=== PATIENT | male | born 1990 | race Caucasian/White ===

== ENCOUNTER 2023-04-10 09:32 | Outpatient (REF) | payer MEDICAID, SELFPAY ==
[2023-04-10 09:51] LABS: MANUAL DIFF FLAG NO
[2023-04-10 10:12] LABS: Basophils Percent Auto 0.3 % (0-2); Eosinophils Absolute Auto 0.1 X10*3/uL (0.0-0.4); Hemoglobin 17.3 g/dl (14.0-18.0); Imm Gran Abs Auto 0.02 X10*3/uL (0.00-0.03); Imm Gran Pct Auto 0.3 % (0.0-0.4); Lymphocytes Absolute Auto 2.3 X10*3/uL (1.2-4.9); Lymphocytes Percent Auto 33.1 % (20-40); Mean Corpuscular Hemoglobin 32.1 pg (27.0-33.0); Mean Corpuscular Volume 89.1 fL (80.0-98.0); Mean Platelet Volume 8.8 fL (9.4-12.4); Monocytes Absolute Auto 0.9 X10*3/uL (0.1-1.2); Monocytes Percent Auto 12.5 % (2-11); Neutrophils Absolute Auto 3.6 x10*3/uL (2.0-8.3); Neutrophils Percent Auto 51.8 % (45-73); Platelet Count 244 X10*3/uL (160-400); Red Blood Count 5.39 X10*6/uL (4.60-5.80); Red Cell Distribution Width 11.8 % (11.0-16.0); White Blood Count 6.9 X10*3/uL (4.8-10.8)
[2023-04-10 10:49] LABS: Anion Gap 14 (12-20); Blood Urea Nitrogen 12 mg/dL (9-16); Calcium 9.4 mg/dL (8.4-10.2); Carbon Dioxide 26 mmol/L (22-29); Chloride 106 mmol/L (96-108); Cholesterol 217 mg/dL (<200); Estimated Glomerular Filt Rate > 60; Glucose Fasting 94 mg/dL (60-99); HDL Cholesterol 42 mg/dL (>40); LDL Cholesterol Calculated 159 mg/dL (<100); Potassium 4.5 mmol/L (3.3-5.1); Sodium 141 mmol/L (135-145); Triglycerides 82 mg/dL (<150)
[2023-04-10 11:00] LABS: TSH reflex Free T4 2.81 uIU/mL (0.32-4.0)
[2023-04-10 11:07] LABS: ~HepC Num1 0.07 S/CO (0.00-0.79); ~Hepatitis C Antibody Nonreactive (Nonreactive)
== END 2023-04-10 09:33 | disposition home or self-care (01) ==
LOC: HO.LAB 09:32
PROVIDERS: PCP Pediatrics; Visit Provider Pediatrics
DX: Z00.00 Encounter for general adult medical examination without abnormal findings (principal)
CPT/HCPCS: 36415; 80048; 80061; 84443; 85025; 86803

== ENCOUNTER 2025-01-15 15:14 | Outpatient (REF) | payer MEDICAID, SELFPAY ==
--- NOTE | ~2025-01-15 | XR_ITS ---
EXAMINATION: XR FOOT, LEFT CLINICAL INFORMATION: [Pain COMPARISON: None available. TECHNIQUE: AP, lateral, and oblique views of the left foot. FINDINGS: There is a small enthesophyte at the Achilles attachment on calcaneus. There are no other abnormalities. XR/XR foot LT min 3V IMPRESSION: Small Achilles calcaneal enthesophyte. Electronically signed by: Ko Lopez MD 01/15/2025 04:16 PM ROMAN
--- OUTSIDE RECORDS SUMMARY | 2025-01-15 14:40 | XMS_ITS | Encounter Summary ---
Author Organization [employer] Address [address] [facility] [address] [place] [address] Care Team Providers Care Court Monitor Name Role Phone Liya Kendall MD Primary Care Provider [phone] Fatou Bridges DDYovany Unavailable Unavailabl e Reason for Referral * Consultation (Urgent) - Pending Review Specialty Diagnoses / Procedures Referred By Fanta tsang Referred To Contact Podiatry Diagnoses Pain of left heel Genevieve Fields MD [address] [place] [phone] Phone: tel: fax: Referral ID Status Reason Start Date Expiration Date Visits Requested Visits Authorized [id number] Pending Review Specialty Services Required 01/15/2026 1 1 Encounter Details Date Type Department Care Team (Late st Contact Info) Description 01/15/2025 2:40 PM EST Office Visit [facility] [address] [place] [phone] Genevieve Fields MD [address] [place] [address] [phone] Pain of left heel Social History Tobacco Use Types Packs/Day Years Used Date Smoking Tobacco: Every Day Cigarettes Passive Smoke Exposure: Current Smokeless Tobacco: Never Alcohol Use Standard Drinks/Week Comments Not Currently 0 (1 standard drink = 0.6 oz pur e alcohol) Depression Answer Date Recorded Patient Health Questionnaire-9 Score 0 04/08/2023 Patient Health Questionnaire-9 Score 0 04/08/2023 Last PHQ-9: Questionnaire Data Not on file 0 04/08/2023 Housing Stability Answer Date Recorded What is your housing situation today? I have gale fu 03/30/[address] you li ve. Do you have problems with any of the following? None of the above 03/30/2023 Food Insecurity Answer Date Recorded Within the past 12 months, y ou worried that your food would run out before you got money to buy more: Never True 03/30/2023 Within the past 12 months,th e food you bought just didn't last and you didn't have enough money to get more: Never True Transportation Answer Date Recorded In the past 12 months, has l ack of transportation kept you from medical appts, meetings, work or from getting things needed for daily living? No 03/30/2023 Utilities Answer Date Recorded In the past 12 months, has t he electric, gas, oil or water company threatened to shut off services in your home? No 03/30/2023 Depression Answer Date Recorded Patient Health Questionnaire-2 Score 0 04/08/2023 Sex and Gender Information Value Date Recorded Sex Assigned at Male 04/08/2023 1:29 PM EST Legal Sex Male 2:07 PM EST Gender Identity Male 04/08/2023 1:29 PM EST Sexual Orientation Straight 04/08/2023 3: 30 PM EST documented as of this encounter Last Filed Vital Signs Vital Sign Reading Time Taken Comments Blood Pressure 135/88 01/15/2025 3:13 PM EST Pulse 82 01/15/2025 2:48 PM EST Temperature 35.7 C (96.3 F) 01/15/2025 2:48 PM EST Respiratory Rate 18 01/15/2025 2:48 PM EST Oxygen Saturation 96% 01/15/2025 2:48 PM EST Inhaled Oxygen Concentration - - Weight 103 kg (226 lb) 01/15/2025 2:48 PM EST Height 182.9 cm (6') 01/15/2025 2:48 PM EST Body Mass Index 30.65 01/15/2025 2:48 PM EST documented in this encounter Progress Notes * Genevieve Chacko MD - 01/15/2025 2:40 PM EST Images from the original note were not included. SUBJECTIVE: Forest Montero is a 34 y.o. year old male who presents for acute visit . Forest Montero, 34 years Left Heel Pain - Onset approximately 1.5 to 2 months ago - Pain described as severe, worsened by pressure on the bottom and back of the heel - Sensation of grinding or smashing against the bone - Pain present upon waking and placing feet on the ground, improves after stretching - Pain significant enough to require calling out of work - No daily use of pain medication; occasional Tylenol use - Attempts to walk on toes to avoid heel pain - Wears steel toe boots daily for work; suspects footwear may contribute - Reports callus formation on big toe, sometimes feels abnormal - Pain mainly localized to left heel, mild discomfort in right foot but less severe - Over 200 lbs; has tried various insoles including cloud soles and Dr. Montiel???s, including models for weight over 200 lbs, with minimal relief - Denies prior use of anti-inflammatories for this condition - Denies known history of high blood pressure - Drinks energy drinks (Red Bull) almost daily Misc - Laurens suggestions from others that condition may be plantar fasciitis - Inquired about cortisone injections and bone spurs as possible causes Social History Social History Narrative Not on file Problem List[1] Family History[2] Review of Systems Constitutional: Negative. HENT: Negative. Respiratory: Negative. Cardiovascular: Negative. Gastrointestinal: Negative. Musculoskeletal: Positive for arthralgias and myalgias. OBJECTIVE: Vitals: 01/15/25 1448 01/15/25 1513 BP: (!) 156/97 135/88 BP Location: Right arm Patient Position: Sitting BP Cuff Size: Large adult Pulse: 82 Resp: 18 Temp: 96.3 ??F (35.7 ??C) TempSrc: Temporal SpO2: 96% Weight: 226 lb (103 kg) Height: 6' (1.829 m) Physical Exam Constitutional: Appearance: Normal appearance. Cardiovascular: Rate and Rhythm: Normal rate and regular rhythm. Pulmonary: Effort: Pulmonary effort is normal. Breath sounds: Normal breath sounds. Abdominal: General: Abdomen is flat. Palpations: Abdomen is soft. Musculoskeletal: Left foot: Tenderness present. Feet: Feet: Comments: Tenderness Neurological: Mental Status: He is alert. Follow Up: No follow-ups on file. Medications Ordered Prior to Encounter[3] Problem List Items Addressed This Visit Pain of left heel Relevant Medications ibuprofen 800 MG tablet Other Relevant Orders XR Foot 3+ Views Left (Completed) Referral to Podiatry Pain of left heel: - Pain of left heel likely due to plantar fasciitis; differential includes bone spur. - Prescribed ibuprofen 800 mg every 8 hours with food. Provided printed exercises for heel pain. Referred to regular senior care provider for further evaluation and possible local injection if indicated. Offered referral to physical therapy. Ordered X-ray of left heel. Provided work note for 3 days off. This note was drafted using [employer]ase (Pin[employer]) technology. The patient/patient's guardian has been informed and has consented to the use of this technology: Yes [1] Patient Active Problem List Diagnosis Tobacco use Dental calculus Dental plaque Pain of left heel [2] Family History Problem Relation Name Age of Onset No Known Problems Mother No Known Problems Sister No Known Problems Brother [3] Current Outpatient Medications on File Prior to Visit Medication Sig Dispense Refill acetaminophen (Tylenol) 500 MG tablet Take 1 tablet (500 mg) by mouth every 6 (six) hours if neededfor mild pain for up to 20 doses. 20 tablet 0 azithromycin (Zithromax) 250 MG tablet Take (2) tabs 1st day; take (1) tab next 4 days. 6 tablet 0 nicotine (Nicoderm CQ) 21 MG/24HR patch Place 1 patch on the skin 1 (one) time each day at the sametime. 30 patch 1 Sodium Fluoride (PreviDent 5000 Plus) 1.1 % cream BRUSH TEETH FOR 2 MINUTES, MORNING AND NIGHT. SPIT, DO NOT RINSE. DO NOT EAT OR DRINK ANYTHING FOR 30 MINUTES FOLLOWING USE. 102 g 3 Sodium Fluoride 5000 Sensitive 1.1-5 % gel [place] teeth for 2 minutes, morning and night. Spit, do not rinse. Do not eat or drink anything for 30 minutes following brushing. 100 g 3 No current facility-administered medications on file prior to visit. documented in this encounter Plan of Treatment Upcoming Encounters Date Type Department Care Team (Late st Contact Info) Description 02/13/2025 2:15 PM EST Office Visit [facility] [address] [place] [address] Wisam Saucedo Scheduled Referrals Name Type Priority Associated Diagnoses Orde r Schedule Referral to Podiatry Outpatient Referral Urgent Pain of left heel Expected: 01/15/2025 (Approximate), Expires: 01/15/2026 documented as of this encounter Procedures Procedure Name Priority Date/Time Associated Diagnosis Comments XR FOOT 3+ VIEWS LEFT Routine 01/15/2025 4:02 PM EST Pain of left heel documented in this encounter Results * XR Foot 3+ Views Left (01/15/2025 4:02 PM EST) Anatomical Region Laterality Modality Lower Extremities, Foot Left Radiogra phic Imaging 01/15/2025 4:02 PM EST Narrative 01/15/2025 4:20 PM EST [facility] [address] [place] [address] XRay Report Signed Patient: Forest Montero MR#: [id number] 10 : 1990 Acct:[id number] Age/Sex: 34 / M ADM Date: 01/15/25 Loc: HO.HHCX Attending Dr: Genevieve Chacko MD Ordering Physician: Genevieve Fields MD Date of Service: 01/15/25 Procedure(s): XR foot LT min 3V Accession Number(s): [id number] cc: Genevieve Fields MD; Liya Kendall MD Reason for Exam: pain EXAMINATION: XR FOOT, LEFT CLINICAL INFORMATION: [Pain COMPARISON: None available. TECHNIQUE: AP, lateral, and oblique views of the left foot. FINDINGS: There is a small enthesophyte at the Achilles attachment on calcaneus. There are no other abnormalities. XR/XR foot LT min 3V IMPRESSION: Small Achilles calcaneal enthesophyte. Electronically signed by: Ko Lopez MD 01/15/2025 04:16 PM EST Dictated By: Ko Lopez MD Signed By: <Electronically signed by Ko Lopez MD in OV> 01/15/25 1616 DD/ 1602 TD/TT: 01/15/25 1609 Deck Engineer: Procedure Note Donotuseinterpreter, Image - 01/15/[address] [address] XRay Report Signed Patient: Forest Montero JMR#: [id number] 10 : 1990Acct:[id number] Age/Sex: 34 / MADM Date: 01/15/25 Loc: HO.HHCX Attending Dr: Genevieve Chacko MD Ordering Physician: Genevieve Fields MD Date of Service: 01/15/25 Procedure(s): XR foot LT min 3V Accession Number(s): [id number] cc: Genevieve Fields MD; Liya Kendall MD Reason for Exam: pain EXAMINATION: XR FOOT, LEFT CLINICAL INFORMATION: [Pain COMPARISON: None available. TECHNIQUE: AP, lateral, and oblique views of the left foot. FINDINGS: There is a small enthesophyte at the Achilles attachment on calcaneus. There are no other abnormalities. XR/XR foot LT min 3V IMPRESSION: Small Achilles calcaneal enthesophyte. Electronically signed by: Ko Lopez MD 01/15/2025 04:16 PM EST Dictated By: Ko Lopez MD Signed By: <Electronically signed by Ko Lopez MD in OV> 01/15/25 1616 DD/ 1602 TD/TT: 01/15/25 1609 Deck Engineer: us Genevieve Chacko MD IMG XR PROCEDURES Thierry mary jane Result - Final documented in this encounter Visit Diagnoses Diagnosis Pain of left heel documented in this encounter Additional Health Concerns Assessment Noted Time PHQ-9 Depression Total Score: 0 04/08/19 24 1:50 PM EST documented as of this encounter Care Teams Court Monitor Relationship Specialty Start Date End Date Liya Kendall MD [address] [place] [id number] PCP - General Internal Medicine 04/08/23 Fatou Bridges DDS [address] [place] [address] Resident Dental Night Manager 04/28/24 documented as of this encounter
--- OUTSIDE RECORDS SUMMARY | 2025-01-15 17:21 | XMS_ITS | Encounter Summary ---
Author Organization [employer] Address [address] [facility] 7[address] [place] [address] Care Team Providers Care Crop Specialist Name Role Phone Liya Kendall MD Primary Care Provider [phone] Fatou Bridges DDYovany Unavailable Unavailabl e Encounter Details Date Type Department Care Team (Latest Contact Info) Description 01/15/2025 Travel Social History Tobacco Use Types Packs/Day Years [...] PM EST documented as of this encounter Plan of Treatment Upcoming Encounters Date Type Department Care Team (Late st Contact Info) Description 02/13/2025 2:15 PM EST Office Visit [facility] [address] [place] [address] Wisam Saucedo documented as of this encounter Visit Diagnoses Not on filedocumented in this encounter Additional Health Concerns Assessment Noted Time PHQ-9 Depression Total Score: 0 04/08/19 24 1:50 PM EST documented as of this encounter Care Teams Crop Specialist Relationship Specialty Start Date End Date Liya Kendall MD [address] [place] [address] PCP - General Internal Medicine 04/08/23 Fatou Bridges DDS [address] [place] [address] Resident Dental Nutrition Aides Teacher 04/28/24 documented as of this encounter
--- OUTSIDE RECORDS SUMMARY | 2025-01-15 17:21 | XMS_ITS | Clinical Summary ---
Author Organization [facility] Address [address] [address] Phone Care Team Providers Care Tube Room Cashier Name Role Phone Unknown, Unknown MD Primary Care Provider Abundio qiu Allergies Active Allergy Reactions Criticality Noted Date Comments Amoxicillin-Pot Clavulanate Rash Low 12/31/19 23 Medications benzonatate (TESSALON) 100 MG capsule Take 2 capsules (200 mg total) by mouth 3 (three) times a day as needed for cough. 21 capsule 3 Active Additional Information Patient not taking.Reported on 12/30/2022 albuterol (PROAIR HFA) 90 mcg/actuation inhaler Inhale 2 puffs into the lungs every 4 (four) hours as needed for wheezing. 18 g 3 Active inhaler spacing device (AEROCHAMBER,BR EATHERITE) Spcr Inhale 1 each into the lungs every 4 (four) hours as needed. 1 each 3 Active Active Problems No known active problems Social History Tobacco Use Types Packs/Day Years Used Date Smoking Tobacco: Every Day Smokeless Tobacco: Never Alcohol Use Standard Drinks/Week Comments No 0 (1 standard drink = 0.6 oz pur e alcohol) Education Answer Date Recorded Are you interested in more education? Not on marysol e 07/03/2022 Are you concerned about learning? Not on file 07/03/2022 No 07/03/2022 No 07/03/2022 Digital Access Answer Date Recorded No 07/31/2022 No 07/31/2022 Reliable internet access at home? Not on file 07/31/2022 Device with a working camera? Not on file Sex and Gender Information Value Date Recorded Sex Assigned at Male 09/01/2017 6:24 PM EDT Legal Sex Male 8:56 PM EDT Gender Identity Male 09/01/2017 6:24 PM EDT Sexual Orientation Straight 09/01/2017 6: 24 PM EDT Last Filed Vital Signs Vital Sign Reading Time Taken Comments Blood Pressure 128/84 12/30/2022 9:28 AM EDT Pulse 104 12/30/2022 9:28 AM EDT Temperature 37.5 C (99.5 F) 12/30/2022 9:28 AM EDT Respiratory Rate 18 12/23/2022 9:12 AM EDT Oxygen Saturation 97% 12/30/2022 9:28 AM EDT Inhaled Oxygen Concentration - - Weight 104.3 kg (230 lb) 12/30/2022 9:28 AM EDT pt reports Height 182.9 cm (6') 12/23/2022 9:12 AM EDT Body Mass Index 31.19 12/23/2022 9:12 AM EDT Plan of Treatment Health Maintenance Due Date Last Done Comments Adult Td,Tdap Booster 1992 DEPRESSION SCREENING 2004 SMOKING Hx and SMOKELESS TOB ACCO SCREENING 2005 HEPATITIS C SCREENING 2010 HIV ONE-TIME SCREENING (18-6 5 YEARS) 2010 PNEUMOCOCCAL VACCINES (0-49 years) (1 of 2 - PCV) 12/21/2011 INFLUENZA VACCINE (#1) 2024 COVID-19 VACCINE (2 - 2024-2 6 season) 2024 07/10/2020 HEPATITIS A VACCINES Aged Out No long er eligible based on patient's age to complete this topic HIB VACCINES Aged Out No longer eligi ble based on patient's age to complete this topic IPV VACCINES Aged Out No longer eligi ble based on patient's age to complete this topic MENINGOCOCCAL VACCINES (ACWY) Aged Out No longer eligible based on patient's age to complete this topic MENINGOCOCCAL VACCINES (B) Aged Out N o longer eligible based on patient's age to complete this topic Medical Devices Not on file Insurance Member Subscriber Plan / Payer (Ef fective 2018-Present) Name:Forest Montero Member ID:[id number] Relation to Subscriber:Self Name:Forest Montero Subscriber ID:[id number] Payer ID:Not on file Group ID:Not on file Type:Indemnity Address: [address] [employer] Member Subscriber Plan / Payer (Ef fective 2018-Present) Name:Forest Montero Member ID:[id number] Relation to Subscriber:Self Name:Forest Montero Subscriber ID:[id number] Payer ID:Not on file Group ID:Not on file Type:Indemnity Address: [address] [employer] Member Subscriber Plan / Payer (Ef fective 2018-Present) Name:Forest Montero Member ID:[id number] Relation to Subscriber:Self Name:Forest Montero Subscriber ID:[id number] Payer ID:Not on file Group ID:Not on file Type:Indemnity Address: [address] [employer] [facility] Member Subscriber Plan / Payer (Ef fective 2018-Present) Name:Forest Montero Member ID:[id number] Relation to Subscriber:Self Name:Forest Montero Subscriber ID:[id number] Payer ID:Not on file Group ID:Not on file Type:Indemnity Address: [address] [employer] [facility] Member Subscriber Plan / Payer (Ef fective 2018-Present) Name:Forest Montero Member ID:[id number] Relation to Subscriber:Self Name:Forest Montero Subscriber ID:[id number] Payer ID:Not on file Group ID:Not on file Type:Indemnity Address: [address] [employer] [facility] Member Subscriber Plan / Payer (Ef fective 2018-Present) Name:Forest Montero Member ID:[id number] Relation to Subscriber:Self Name:Forest Montero Subscriber ID:[id number] Payer ID:Not on file Group ID:Not on file Type:Indemnity Address: [address] [employer] [facility] Member Subscriber Plan / Payer (Ef fective 2018-Present) Name:Sevene, Forest Member ID:[id number] Relation to Subscriber:Self Name:Forest Montero Subscriber ID:[id number] Payer ID:Not on file Group ID:Not on file Type:Indemnity Address: [address] [place] [address] [place] [address] Member Subscriber Plan / Payer ( fective 2018-Present) Name:Winston[place]st Member ID:[id number] Relation to Subscriber:Self Name:Forest Montero Subscriber ID:[id number] Payer ID:Not on file Group ID:Not on file Type:Indemnity Address: [address] [place] [address] [place] [address] [facility] [employer] Care Teams Tube Room Cashier Relationship Specialty Start Date End Date Unknown, Unknown, PCP - General 09/01/17 Additional Source Comments The information contained in this document represents components of the legal health record. It is not the complete legal health record.[facility]
--- OUTSIDE RECORDS SUMMARY | 2025-01-15 17:21 | XMS_ITS | Clinical Summary ---
Author Organization [employer] Address [address] [place] [address] Care Team Providers Care Electric Mule Operator Name Role Phone Liya Kendall MD Primary Care Provider [phone] Fatou Bridges DDS Unavailable Unavailabl e Allergies Active Allergy Reactions Criticality Noted Date Comments Amoxicillin-Pot Clavulanate Rash Low 12/31/19 23 Medications nicotine (Nicoderm CQ) 21 MG/24HR patch Place 1 patch on the skin 1 (one) time each day at the same time. 30 patch 1 4 Active Sodium Fluoride 5000 Sensitive 1.1-5 % gel [place] teeth for 2 minutes, morning and night. Spit, do not rinse. Do not eat or drink anything for 30 minutes following brushing. 100 g 3 4 Active Sodium Fluoride (PreviDent 5000 Plus) 1.1 % cream BRUSH TEETH FOR 2 MINUTES, MORNING AND NIGHT. SPIT, DO NOT RINSE. DO NOT EAT OR DRINK ANYTHING FOR 30 MINUTES FOLLOWING USE. 102 g 3 4 Active acetaminophen (Tylenol) 500 MG tablet Take 1 tablet (500 mg) by mouth every 6 (six) hours if needed for mild pain for up to 20 doses. 20 tablet 5 Active azithromycin (Zithromax) 250 MG tablet Take (2) tabs 1st day; take (1) tab next 4 days. 6 tablet 5 Active ibuprofen 800 MG tabletIndicatio ns:Pain of left heel Take 1 tablet (800 mg) by mouth every 8 (eight) hours if needed for moderate pain for up to 10 days. 30 tablet 5 01/26/20 25 Active Active Problems Problem Noted Date Diagnosed Date Pain of left heel 01/15/2025 Dental calculus 11/12/2023 Dental plaque 11/12/2023 Tobacco use 04/08/2023 Encounters Date Type Department Care Team Description 01/15/2025 2:40 PM EST Office Visit [facility] [address] [facility] [place] [address] Genevieve Fields MD Pain of left heel 01/15/2025 Travel 01/15/2025 Telephone [facility] [address] [place] [address] Liya Kendall MD Nurse Triage from Last 3 Months Immunizations Immunization Administration Dates Next Due Hep A, Adult 09/23/2022,02/27/2022 Hep B, adult 09/23/2022,03/30/2022,02/27/2022 Family History Medical History Relation Name Comments No Known Problems Brother No Known Problems Mother No Known Problems Sister Relation Name Status Comments Brother Alive Father Alive Mother Alive Sister Alive Social History Tobacco Use Types Packs/Day Years Used Date Smoking Tobacco: Every Day Cigarettes Passive Smoke Exposure: Current Smokeless Tobacco: Never Tobacco Cessation:Ready to Q uit: Not Asked; Counseling Given: Not Answered Alcohol Use Standard Drinks/Week Comments Not Currently [...] Orientation Straight 04/08/2023 3: 30 PM EST Last Filed Vital Signs Vital Sign Reading [...] Mass Index 30.65 01/15/2025 2:48 PM EST Plan of Treatment Upcoming Encounters Date Type Department Care Team (Late st Contact Info) Description 02/13/2025 2:15 PM EST Office Visit [facility] [address] [place] [address] Wisam Saucedo Health Maintenance Due Date Last Done Comments HIV Screening 1992 Disability Screening 1992 Alcohol/Substance Use Screening 2004 Family Planning (PISQ) 12/21/2007 HPV Vaccines (1 - Male 3-dos e series) 12/21/2007 DTaP/Tdap/Td Vaccines (1 - Tdap) 12/21/2011 Pneumococcal Vaccine: Pediatrics (0 to 5 Years) and At-Risk Patients (6 to 49) Years (1 of 2 - PCV) 12/21/2011 SDOH Screening 03/30/2024 03/30/2023 Depression Screening 04/08/2024 04/08/2023, 04/08/2023 Dental Oral Exam 05/05/2024 11/02/2023 Dental X-Ray: Bitewings 11/02/2024 11/02/2023 COVID-19 Vaccine (3 - 2024-2 6 season) 2024 07/31/2020, 07/10/2020 Influenza Vaccine (#1) 2024 Dental Prophylaxis 11/16/2024 05/15/2024, 11/12/2023 Tobacco Screening 07/13/2025 07/13/2024 Dental X-Ray: Full Mouth 11/02/2026 11/02/2023 Lipid Panel 04/10/2028 04/10/2023 Zoster Vaccines (1 of 2) 2042 RSV Patients and Patients Aged 60 years or older (1 - 1-dose 75+ series) 12/21/2067 Hepatitis A Vaccines Aged Out 09/23/2022, 02/27/2022 No longer eligible based on patient's age to complete this topic Hepatitis B Vaccines Completed 09/23/2022, 03/30/2022, 02/27/2022 Hepatitis C Screening Completed 04/10/2023 HIB Vaccines Aged Out No longer eligi ble based on patient's age to complete this topic IPV Vaccines Aged Out No longer eligi ble based on patient's age to complete this topic Meningococcal B Vaccine Aged Out No l onger eligible based on patient's age to complete this topic Meningococcal Vaccine Aged Out No jose miguel jenny eligible based on patient's age to complete this topic RSV under 20 months Aged Out No longe r eligible based on patient's age to complete this topic Rotavirus Vaccines Aged Out No longer eligible based on patient's age to complete this topic Procedures Procedure Name Priority Date/Time Associated Diagnosis Comments XR FOOT 3+ VIEWS LEFT Routine 01/15/2025 4:02 PM EST Pain of left heel PROPHYLAXIS - ADULT Routine 05/15/2024 8 :00 AM EDT INTRAORAL - COMPLETE SERIES OF RADIOGRAPHIC IMAGES Routine 11/02/2023 8:30 AM EDT COMPREHENSIVE ORAL EVALUATION - NEW OR ESTABLISHED PATIENT Routine 11/02/2023 8:30 AM EDT HEPATITIS C ANTIBODY Routine 04/10/2023 9:49 AM EST Encounter for routine dental examination Routine general medical examination at a health care facility LIPID PANEL, STANDARD Routine 04/10/2023 9:49 AM EST Encounter for routine dental examination Routine general medical examination at a health care facility from Last 3 Months or Most Recently Relevant to Health Maintenance Results * XR Foot 3+ Views Left (01/15/2025 4:02 PM EST) Anatomical Region Laterality Modality Lower Extremities, Foot Left Radiogra phic Imaging 01/15/2025 4:02 PM EST Narrative 01/15/2025 4:20 PM EST [address] [address] XRay Report Signed Patient: Forest Montero MR#: [id number] 10 : 1990 Acct:[id number] Age/Sex: 34 / M ADM Date: 01/15/25 Loc: HO.HHCX Attending Dr: Genevieve Chacko MD Ordering Physician: Genevieve Fields MD Date of Service: 01/15/25 Procedure(s): XR foot LT min 3V Accession Number(s): [id number] cc: Genevieve Fields MD; Liya Kendall MD [...] 01/15/25 1616 DD/ 1602 TD/TT: 01/15/25 1609 Process Safety Manager: Procedure Note Donotuseinterpreter, Image - 01/15/[address] [address] XRay Report Signed Patient: Forest Montero JMR#: [id number] 10 : 1990Acct:[id number] Age/Sex: 34 / MADM Date: 01/15/25 Loc: HO.HHCX Attending Dr: Genevieve Chacko MD Ordering Physician: Genevieve Fields MD Date of Service: 01/15/25 Procedure(s): XR foot LT min 3V Accession Number(s): [id number] cc: Genevieve Fields MD; Liya Kendall MD [...] 01/15/25 1616 DD/ 1602 TD/TT: 01/15/25 1609 Process Safety Manager: Genevieve Chacko MD IMG XR PROCEDURES Thierry mary jane Result - Final * Hepatitis C Ab (04/10/2023 9:49 AM EST) Hepatitis C Antibody Nonreactive Nonreactive [facility] Comment:Antibodies to HCV no t detected; does not exclude early acuteHCV infection. Blood Venous blood specimen / Unknown 04/10/2023 9:49 AM EST 04/10/2023 9:49 AM EST us Liya Kendall MD LAB BLOOD ORDERABLES Final Re sult [facility] [address] [place] [address] [place] [address] [phone] * (ABNORMAL) Lipid Panel, Standard (04/10/2023 9:49 AM EST) Triglycerides 82 <150 mg/dL [facility] Comment:Desirable Triglyceri de: less than 150 mg/dLBorderline High Triglyceride 150-199 mg/dLHigh Triglyceride: 200-499 mg/dLVery High Triglyceride: greater than or equal to 5OO mg/dL Cholesterol 217(H) <200 mg/dL [facility] Comment:Desirable Cholestero l: less than 200 mg/dLBorderline High Cholesterol: 200-239 mg/dLHigh Cholesterol: greater than 239 mg/dL LDL Cholesterol Calculated 159(H) <100 mg/dL [facility] Comment:Desirable LDL: less than 100 mg/dLNear Optimal/Above Optimal LDL: 110- 129 mg/dLBorderline High LDL: 130-159 mg/dLHigh LDL: 160-189 mg/dLVery High LDL: greater than or equal to 190 mg/dL HDL Cholesterol 42 >40 mg/dL [facility] Comment:Desirable HDL: great er than 40 mg/dL Note: This HDL assay may give artificially low results in patients with liver disease. Blood Venous blood specimen / Unknown 04/10/2023 9:49 AM EST 04/10/2023 9:49 AM EST us Liya Kendall MD LAB BLOOD ORDERABLES Final Re sult [facility] [address] [place] [address] [phone] from Last 3 Months or Most Recently Relevant to Health Maintenance Insurance [facility] STAND ADULT Care Teams Electric Mule Operator Relationship Specialty Start Date End Date Liya Kendall MD [address] [place] [address] PCP - General Internal Medicine 04/08/23 Fatou Bridges DDS [address] [place] [address] Resident Dental Vegetable Cutter 04/28/24
--- OUTSIDE RECORDS SUMMARY | 2025-01-15 17:21 | XMS_ITS | Encounter Summary ---
Author Organization [employer] Address [address] [facility] 7 [place] [address] Care Team Providers Care Inter Fold Roll Cutter Name Role Phone Liya Kendall MD Primary Care Provider [phone] Fatou Bridges DDYovany Unavailable Unavailabl e Reason for Visit * Reason Onset Date Comments Nurse Triage 01/15/2025 Encounter Details Date Type Department Care Team ([facility] Contact Info) Description 01/15/2025 Telephone [facility] [address] [place] [address] Liya Kendall MD [address] [place] [address] Nurse Triage Social History Tobacco Use Types Packs/Day Years [...] PM EST documented as of this encounter Miscellaneous Notes * Telephone Encounter - Dieudonne Strong RN - 01/15/2025 1:30 PM EST TC placed to patient. Patient reported Left heel pain x 1--2 months and progressively is getting worse and it is making it more difficult to ambulate. Patient denies any injury to the site. RN advised patient to come [facility] for further evaluation. RN informed patient on the days and hours of operation of the Walk in Center. Patient verbalized understanding. Protocol Used: Foot Pain (Adult) Protocol-Based Disposition: See in Office or Video Visit within 3 Days Video visit not offered Positive Triage Questions: * Moderate pain (e.g., interferes with normal activities, limping) and present > 3 days * Patient wants to be seen * Foot pain is a chronic symptom (recurrent or ongoing AND lasting > 4 weeks) * Foot pain * Caused by overuse from recent vigorous activity (e.g., aerobics, jogging/running, physical work, prolonged walking, sports) * All higher-acuity triage questions were negative Care Advice Discussed: * Reassurance and Education - Foot Pain * Reassurance and Education - Overuse * Foot Pain - Aggravating Factors * Reasons To Call Back - Moderate pain (interferes with normal activities) lasts over 3 days - Mild pain lasts over 7 days - Signs of infection occur (such as spreading redness, warmth, fever) - You become worse * Telephone Encounter - Godfrey Raines - 01/15/2025 11:59 AM EST Symptom: Foot or Ankle Swelling Outcome: Schedule an urgent appointment (within 1 hour) or talk to a nurse or provider soon Reason: Trouble walking The caller accepted this outcome. Contact pt at [phone] documented in this encounter Plan of Treatment Upcoming Encounters Date Type Department Care Team (Late st Contact Info) Description 02/13/2025 2:15 PM EST Office Visit [facility] [address] [place] [address] Wisam Saucedo documented as of this encounter Visit Diagnoses Not on filedocumented in this encounter Additional Health Concerns Assessment Noted Time PHQ-9 Depression Total Score: 0 04/08/19 24 1:50 PM EST documented as of this encounter Care Teams Inter Fold Roll Cutter Relationship Specialty Start Date End Date Liya Kendall MD [address] [place] [address] PCP - General Internal Medicine 04/08/23 Fatou Bridges DDS [address] [place] [address] Resident Dental House Painter Helper 04/28/24 documented as of this encounter
--- OUTSIDE RECORDS SUMMARY | 2025-01-15 17:21 | XMS_ITS | Encounter Summary ---
Author Organization [employer] Address [address] [facility] [address] [place] [address] Care Team Providers Care Machine Operator Assistant Name Role Phone Liya Kendall MD Primary Care Provider [phone] Fatou Bridges DDS Unavailable Unavailabl e Reason for Visit * Reason Comments Med Change Request Encounter Details Date Type Department Care Team ([facility] Contact Info) Description 01/20/2024 Refill [facility] [address] [place] [address] Shazia Rubio DMD Social History Tobacco Use Types Packs/Day Years [...] Description 02/13/2025 2:15 PM EST Office Visit [facility] [address] [place] [address] Wisam Saucedo documented as of this encounter Visit Diagnoses Not on filedocumented in this encounter Additional Health Concerns Assessment Noted Time PHQ-9 Depression Total Score: 0 04/08/19 24 1:50 PM EST documented as of this encounter Care Teams Machine Operator Assistant Relationship Specialty Start Date End Date Liya Kendall MD [address] [place] [address] PCP - General Internal Medicine 04/08/23 Fatou Bridges DDS [address] [place] [address] Resident Dental Form Worker 04/28/24 documented as of this encounter
== END 2025-01-15 15:15 | disposition home or self-care (01) ==
LOC: HO.HHCX 15:14
PROVIDERS: PCP Pediatrics; Visit Provider Internal Medicine
DX: M79.672 Pain in left foot (principal)
CPT/HCPCS: 73630

== ENCOUNTER → 2025-01-15 15:30 | Outpatient (BNV) | payer MEDICAID, SELFPAY | PROVIDERS: PCP Pediatrics; Visit Provider Radiology Diagnostic Radiology | DX: M77.32 Calcaneal spur, left foot (principal) | CPT/HCPCS: 73630 ==

== ENCOUNTER 2025-01-23 12:52 | Outpatient (AMB) | payer MEDICAID, SELFPAY ==
--- OUTSIDE RECORDS SUMMARY | 2025-01-20 12:00 | XMS_ITS | Encounter Summary ---
Author Organization [employer] Address [address] [facility] [address] [place] [address] Care Team Providers Care Steam Shovelman Name Role Phone Liya Kendall MD Primary Care Provider [phone] Fatou Bridges DDYovany Unavailable Unavailabl e Encounter Details Date Type Department Care Team ([facility] st Contact Info) Description 01/20/2025 12:00 PM EST Office Visit [facility] [address] [place] [address] Liya Kendall MD [address] [place] [address] Tobacco use (Primary Dx); Dietary counseling; Exercise counseling; Calcaneal spur of left foot Social History Tobacco Use Types Packs/Day Years [...] is your housing situation today? I have galejose fu 03/30/[address] you [...] Sign Reading Time Taken Comments Blood Pressure 139/89 01/20/2025 11:52 AM EST Pulse 80 01/20/2025 11:52 AM EST Temperature 36.9 C (98.4 F) 01/20/2025 11:52 AM EST Respiratory Rate 20 01/20/2025 11:52 AM EST Oxygen Saturation 97% 01/20/2025 11:52 AM EST Inhaled Oxygen Concentration - - Weight - - Height 182.9 cm (6') 01/20/2025 11:52 AM EST Body Mass Index - - documented in this encounter Progress Notes * Liya Kendall MD - 01/20/2025 12:00 PM EST Images from the original note were not included. Subjective Patient ID: Forest Montero is a 34 y.o. male who presents for chronic left foot pain. Forest is a 34 y/o male patient of mine seen recently by in [facility] for severe left heel pain despite use of gel inserts etc.. Prescribed ibuprofen and referred to podiatry but his visit isnt until next week and he has missed work at [employer] where he has to wear steel boots all day. Xray showed bone spurs. Review of Systems Constitutional: Negative for activity change, chills, fever and unexpected weight change. Respiratory: Negative for cough, shortness of breath and wheezing. Cardiovascular: Negative for chest pain, palpitations and leg swelling. Gastrointestinal: Negative for abdominal pain and blood in stool. Endocrine: Negative for polydipsia and polyuria. Genitourinary: Negative for decreased urine volume, difficulty urinating, dysuria and hematuria. Musculoskeletal: Positive for arthralgias. Negative for gait problem. Skin: Negative for color change and rash. Neurological: Negative for dizziness and headaches. Hematological: Negative for adenopathy. Psychiatric/Behavioral: Negative for dysphoric mood, hallucinations, sleep disturbance and suicidalideas. The patient is not nervous/anxious. Objective BP 139/89 (BP Location: Right arm, Patient Position: Sitting, BP Cuff Size: Adult) Pulse 80 Temp 98.4 ??F (36.9 ??C) (Oral) Resp 20 Ht 6' (1.829 m) SpO2 97% BMI 30.65 kg/m?? Physical Exam Vitals reviewed. Constitutional: Appearance: Normal appearance. HENT: Head: Normocephalic. Musculoskeletal: Right lower leg: No edema. Left lower leg: No edema. Left foot: Swelling, tenderness and bony tenderness present. No crepitus. Legs: Neurological: Mental Status: He is alert. Assessment/Plan Diagnoses and all orders for this visit: Tobacco use Comments: Still smoking tobacco. Used nicotine patches/gum w/o helping. PE visit with me scheduled.Advised roshan purdy. Will reasses readiness next visit. Dietary counseling Exercise counseling Calcaneal spur of left foot Comments: Mynor purdy podiatry eval visit on . Use freezer cold tennis ball to roll heal on. Diclofenacgel1% prescribed as well.Letter for work given. Other orders - Diclofenac Sodium 1 % gel; Apply to heel bid prn pain documented in this encounter Plan of Treatment Upcoming Encounters Date Type Department Care Team (Late st Contact Info) Description 02/13/2025 2:15 PM EST Office Visit [facility] [address] [place] [address] Wisam Saucedo 02/14/2025 9:30 AM EST Office Visit [facility] [address] [place] [address] Liya Kendall MD [address] [place] [address] documented as of this encounter Visit Diagnoses Diagnosis Tobacco use- Primary Dietary counseling Dietary surveillance and counseling Exercise counseling Calcaneal spur of left foot documented in this encounter Additional Health Concerns Assessment Noted Time PHQ-9 Depression Total Score: 0 04/08/19 24 1:50 PM EST documented as of this encounter Care Teams Steam Shovelman Relationship Specialty Start Date End Date Liya Kendall MD [address] [facility] [place] [id number] PCP - General Internal Medicine 04/08/23 Fatou Bridges DDS [address] [place] [address] Resident Dental Back Wedger 04/28/24 documented as of this encounter
--- NOTE | 2025-01-23 13:07 | A.OFFVIS_ITS ---
Vital Signs 01/23/25 13:08 Height 6 ft Weight 220 lb BMI 29.8 Intake Visit Reasons: pain on left heel Intake Note: Forest is a 34 year old male who presents today as a new patient for an evaluation of his left heel pain. Patient reports the pain has been going on for about 2 months. He was seen at [facility] walk in clinic where X rays where ordered results are in patients chart. He has tried massaging his foot, stretches, and he was prescribed Tylenol and an arthritis gel. Allergies amoxicillin Allergy (Verified 01/23/25 13:09) hives HPI Comments Details: The patient is a 34-year-old male with a past medical history as seen below presenting with left foot pain. The patient reports that the pain has been progressively worsening over the past few months, initially triggered by prolonged standing and physical activities such as basketball. He describes the pain as a tingling sensation at the back of the heel, exacerbated by pressure and prolonged standing, particularly while wearing steel-toed boots for work. He notes that the pain initially began after playing basketball for extended periods and has since been aggravated by his work conditions. He has been taking Tylenol for pain management, although he reports minimal relief. The patient has also tried various shoe inserts to alleviate discomfort, with limited success. He denies any other pedal concerns. [facility] Medical History (Updated 01/23/25 @ 13:27 by Nubia Munoz DPM) Left foot pain Other enthesopathy of left foot and ankle Calcaneal spur of left foot Insertional tendinopathy of left Achilles tendon Plantar fasciitis of left foot Review of Systems Const Details: - Musculoskeletal: Reports tingling sensation and pain at the posterior aspect of the left heel, exacerbated by pressure and prolonged standing. Denies any other joint pain or swelling. All systems reviewed & are unremarkable except as noted in HPI and below Physical Exam Vital Signs: BMI result Body Mass Index 29.8 Extrem Other: Left lower extremity focused physical exam: Derm: No open lesions abrasions or wounds noted. No ecchymosis or discoloration noted. Skin supple and turgor within normal limits. No clinical signs of infection noted. Vascular: DP/PT pulses palpable. Capillary refill time less than 3 seconds. Temperature gradient warm to warm. No edema noted. Pedal hair present. No edema noted. Neuro: Protective sensation is grossly intact although patient states he experiences a tingling sensation.. MSK: Pain on palpation to the posterior aspect of the calcaneus along the insertion point of the Achilles tendon. No palpable [place] noted. Negative Treviño test. Pain on palpation to the plantar aspect of the calcaneus in the medial calcaneal tubercle and central aspect of the calcaneus. Negative windlass mechanism. Mildly antalgic gait unassisted. Slightly limited range of motion of the hindfoot and ankle in comparison to the right side. Results Reviewed Results Reviewed: Podiatry read of left foot x-ray (01/15/2025): Mild bone spur noted to the posterior aspect of the calcaneus at the Achilles tendon insertion point. No acute fractures or dislocations noted. Joint spacing within normal limits. Left foot x-ray (01/15/2025): FINDINGS: There is a small enthesophyte at the Achilles attachment on calcaneus. There are no other abnormalities. IMPRESSION: Small Achilles calcaneal enthesophyte. Assessment & Plan Assessment & Plan (1) Plantar fasciitis of left foot: Code(s): M72.2 - Plantar fascial fibromatosis Category: Medical (2) Insertional tendinopathy of left Achilles tendon: Code(s): M76.62 - Achilles tendinitis, left leg Category: Medical (3) Calcaneal spur of left foot: Code(s): M77.32 - Calcaneal spur, left foot Category: Medical (4) Other enthesopathy of left foot and ankle: Code(s): M77.52 - Other enthesopathy of left foot and ankle Category: Medical (5) Left foot pain: Code(s): M79.672 - Pain in left foot Category: Medical Plan Patient was informed and verbally consented to the use of an ambient scribe for clinic note documentation during this visit. I discussed with the patient the diagnosis of insertional Achilles tendinitis, plantar fasciitis, and the presence of a bone spur. We reviewed the management options, including rest, ice, and elevation, as well as the use of a Medrol Dosepak to reduce inflammation. I explained the potential benefits and risks of physical therapy and cortisone injections, emphasizing the importance of limiting injections to no more than three per year to avoid weakening the soft tissue. We also discussed the possibility of surgical intervention if conservative measures fail. The patient was advised to follow up in three weeks to assess progress and consider further treatment options if necessary. - Recommend continuation of rice protocol. - Prescribed Medrol Dosepak to reduce inflammation and pain. - Advise use of Power Step inserts for additional support and comfort. - Advised patient to wear supportive shoe gear and avoid barefoot walking. - Discussed potential for use of a night splint, physical therapy, and injections if symptoms persist after three weeks. - Consider surgical intervention if conservative measures fail and symptoms worsen significantly. RTC in 3 weeks. Medications: New methylprednisolone (Medrol (José)) PO PER PKG DIR 21 ea 0RF M72.2 - Plantar fascial fibromatosis, M76.62 - Achilles tendinitis, left leg, M77.32 - Calcaneal spur, left foot, M77.52 - Other enthesopathy of left foot and ankle, M79.672 - Pain in left foot Coding Level of Care Code New Pt Level 4 (22306) Diagnoses Plantar fasciitis of left foot M72.2 Insertional tendinopathy of left Achilles tendon M76.62 Calcaneal spur of left foot M77.32 Other enthesopathy of left foot and ankle M77.52 Left foot pain M79.672 Time Spent (min) 48
[2025-01-23 13:08] VITALS: BMI 29.8
--- OUTSIDE RECORDS SUMMARY | 2025-01-24 04:13 | XMS_ITS | Encounter Summary ---
Author Organization [employer] Address [address] [facility] 7t [place] [address] Care Team Providers Care Beveling Machine Operator Name Role Phone Liya Kendall MD Primary Care Provider [phone] Fatou Bridges DDS Unavailable Unavailabl e Reason for Visit * Reason Comments Med Change Request Encounter Details Date Type Department Care Team ([facility] Contact Info) Description 01/20/2024 Refill [facility] ADULT D[facility]AL [address] [place] [address] Shazia Rubio DMD Social History Tobacco Use [...] Description 02/13/2025 2:15 PM EST Office Visit [facility] AD[facility] [address] [place] [address] Wisam Saucedo 02/14/2025 9:30 AM EST Office Visit [facility] [address] [place] [address] Liya Kendall MD [address] [place] [address] documented as of this encounter Visit Diagnoses Not on filedocumented in this encounter Additional Health Concerns Assessment Noted Time PHQ-9 Depression Total Score: 0 04/08/19 1:50 PM EST documented as of this encounter Care Teams Beveling Machine Operator Relationship Specialty Start Date End Date Liya Kendall MD [address] [place] [address] PCP - General Internal Medicine 04/08/23 Fatou Bridges DDS [address] [place] [address] Resident Dental Accounting Administrator 04/28/24 documented as of this encounter
--- OUTSIDE RECORDS SUMMARY | 2025-01-24 04:14 | XMS_ITS | Clinical Summary ---
Author Organization [facility] Address [address] [address] Phone Care Team Providers Care Core Sucker Name Role Phone Unknown, Unknown MD Primary [...] topic Medical Devices Not on file Insurance [facility] Member Subscriber Plan / Payer (Ef fective 2018-Present) Name:Forest Montero Member ID:[id number] Relation to Subscriber:Self Name:Forest Montero Subscriber ID:[id number] Payer ID:Not on file Group ID:Not on file Type:Indemnity Address: [address] [employer] Member Subscriber Plan / Payer (Ef fective 2018-Present) Name:Forest Montero Member ID:[id number] Relation to Subscriber:Self Name:Forest Montero Subscriber ID:[id number] Payer ID:Not on file Group ID:Not on file Type:Indemnity Address: [address] [employer] Member Subscriber Plan / Payer (Ef fective 2018-Present) Name:Forest Montero Member ID:[id number] Relation to Subscriber:Self Name:Forest Montero Subscriber ID:[id number] Payer ID:Not on file Group ID:Not on file Type:Indemnity Address: [address] [employer] [facility] Member Subscriber Plan / Payer (Ef fective 2018-Present) Name:Forest Montero Member ID:[id number] Relation to Subscriber:Self Name:Forest Montero Subscriber ID:[id number] Payer ID:Not on file Group ID:Not on file Type:Indemnity Address: [address] [place] [address] Member Subscriber Plan / Payer (Ef fective 2018-Present) Name:Forest Montero Member ID:[id number] Relation to Subscriber:Self Name:Forest Montero Subscriber ID:[id number] Payer ID:Not on file Group ID:Not on file Type:Indemnity Address: [address] [place] [place] [address] Member Subscriber Plan / Payer ( fective 2018-Present) Name:Forest Montero Member ID:[id number] Relation to Subscriber:Self Name:Forest Montero Subscriber ID:[id number] Payer ID:Not on file Group ID:Not on file Type:Indemnity Address: [address] [place] [address] Member Subscriber Plan / Payer ( fective 2018-Present) Name:Forest Montero Member ID:[id number] Relation to Subscriber:Self Name:Forest Montero Subscriber ID:[id number] Payer ID:Not on file Group ID:Not on file Type:Indemnity Address: [address] [place] [address] Member Subscriber Plan / Payer (Ef fective 2018-Present) Name:Forest Montero Member ID:[id number] Relation to Subscriber:Self Name:Forest Montero Subscriber ID:[id number] Payer ID:Not on file Group ID:Not on file Type:Indemnity Address: [address] [employer] [facility] [employer] Care Teams Core Sucker Relationship Specialty Start Date End Date Unknown, Unknown, PCP - General 09/01/17 Additional Source Comments The information contained in this document represents components of the legal health record. It is not the complete legal health record.[facility]
--- OUTSIDE RECORDS SUMMARY | 2025-01-24 04:14 | XMS_ITS | Clinical Summary ---
Author Organization [employer] Address [address] [facility] 7t [place] [address] Care Team Providers Care It Sales Executive Name Role Phone Liya Kendall MD Primary Care Provider [phone] Fatou Bridges DDS Unavailable Unavailabl e Allergies Active Allergy Reactions Criticality Noted Date Comments Amoxicillin-Pot Clavulanate Rash Low 12/31/19 23 Medications nicotine (Nicoderm CQ) 21 MG/24HR patch Place 1 patch on the skin 1 (one) time each day at the same time. 30 patch 1 4 Active Sodium Fluoride 5000 Sensitive 1.1-5 % gel [place] teeth for 2 minutes, morning and night. [...] to 20 doses. 20 tablet 5 Active ibuprofen 800 MG tabletIndicatio ns:Pain of left heel Take 1 tablet (800 mg) by mouth every 8 (eight) hours if needed for moderate pain for up to 10 days. 30 tablet 5 01/26/20 25 Active Diclofenac Sodium 1 % gel Apply to heel bid prn pain 100 g 3 5 Active azithromycin (Zithromax) 250 MG tablet Take (2) tabs 1st day; take (1) tab next 4 days. 6 tablet 5 01/21/20 25 Discontinu ed(Therapy completed) Active Problems Problem Noted Date Diagnosed Date Pain of left heel 01/15/2025 Dental calculus 11/12/2023 Dental plaque 11/12/2023 Tobacco use 04/08/2023 Encounters Date Type Department Care Team Description 01/20/2025 12:00 PM EST Office Visit [facility] [address] [place] [address] Liya Kendall MD Tobacco use (Primary Dx); Dietary counseling; Exercise counseling; Calcaneal spur of left foot 01/20/2025 Travel 01/17/2025 Telephone [facility] [address] [place] [address] Liya Kendall MD Referral 01/16/2025 Orders Only [address] [address] Genevieve Fields MD Pain of left heel (Primary Dx) 01/16/[address] [address] Liya Kendall MD Results 01/15/2025 2:40 PM EST Office Visit [facility] [address] [place] [address] Genevieve Fields MD Pain of left heel 01/15/2025 Travel 01/15/2025 Telephone [facility] [address] [place], [place] [phone] Liya Kendall MD Nurse Triage from Last [...] 2:48 PM EST Height 182.9 cm (6') 01/20/2025 11:52 AM EST Body Mass Index 30.65 01/15/2025 2:48 PM EST Plan of Treatment Upcoming Encounters Date Type Department Care Team (Late st Contact Info) Description 02/13/2025 2:15 PM EST Office Visit [facility] ADULT DENTAL [address] [place] [address] Wisam Saucedo 02/14/2025 9:30 AM EST Office Visit [facility] [address] [place], [place] [phone] Liya Kendall MD [address] [place] [address] Health Maintenance Due Date Last Done Comments [...] Dental Prophylaxis 11/16/2024 05/15/2024, 11/12/2023 Tobacco Screening 01/20/2026 01/20/2025 Dental X-Ray: Full Mouth 11/02/2026 11/02/2023 Lipid [...] EST Narrative 01/15/2025 4:20 PM EST [address] [address] XRay Report Signed Patient: Forest Montero MR#: [id number] 10 : 1990 Acct:[id number] Age/Sex: 34 / M ADM Date: 01/15/25 [facility] Dr: Genevieve Chacko MD Ordering Physician: Genevieve Fields MD Date of Service: 01/15/25 Procedure(s): XR foot LT min 3V Accession Number(s): [id number] cc: Genevieve Fields MD; Liya Kendall MD [...] by: Ko Lopez MD 01/15/2025 04:16 PM [facility] Dictated By: Ko Lopez MD Signed By: <Electronically signed by Ko Lopez MD in OV> 01/15/25 1616 DD/ 1602 TD/TT: 01/15/25 1609 Pressure Testing Technician: Procedure Note Donotuseinterpreter, Image - 01/15/2025 [place] [address] XRay Report Signed Patient: Forest Montero JMR#: [id number] 10 : 1990Acct:[id number] Age/Sex: 34 / MADM Date: 01/15/25 Loc: [facility] Attending Dr: Genevieve Chacko MD Ordering Physician: Genevieve Fields MD Date of Service: 01/15/25 Procedure(s): XR foot LT min 3V Accession Number(s): [id number] cc: Genevieve Fields MD; Liya Kendall MD [...] Lopez MD Signed By: <Electronically signed by oK Lopez MD in OV> 01/15/25 1616 DD/ 1602 TD/TT: 01/15/25 1609 Pressure Testing Technician: us Genevieve Chacko MD IMG XR PROCEDURES Thierry mary jane Result - Final * Hepatitis C Ab (04/10/2023 9:49 AM EST) Pathologist [facility] Hepatitis C Antibody Nonreactive Nonreactive [facility] Comment:Antibodies to HCV no t detected; does not exclude early acuteHCV infection. Blood Venous blood specimen / Unknown 04/10/2023 9:49 AM EST 04/10/2023 9:49 AM EST us Liya Kendall MD LAB BLOOD ORDERABLES Final Re sult [facility] [address] [place] [phone] * (ABNORMAL) Lipid Panel, Standard (04/10/2023 9:49 AM EST) Triglycerides 82 <150 mg/dL [facility] Comment:Desirable Triglyceri de: less than 150 mg/dLBorderline High Triglyceride 150-199 mg/dLHigh Triglyceride: 200-499 mg/dLVery High Triglyceride: greater than or equal to 5OO mg/dL Cholesterol 217(H) <200 mg/dL [facility] Comment:Desirable Cholestero l: less than 200 mg/dLBorderline High Cholesterol: 200-239 mg/dLHigh Cholesterol: greater than 239 mg/dL LDL Cholesterol Calculated 159(H) <100 mg/dL [facility] Comment:Desirable LDL: less than 100 mg/dLNear Optimal/Above Optimal LDL: 110- 129 mg/dLBorderline High LDL: 130-159 mg/dLHigh LDL: 160-189 mg/dLVery High LDL: greater than or equal to 190 mg/dL HDL Cholesterol 42 >40 mg/dL [facility] Comment:Desirable HDL: great er than 40 mg/dL Note: This HDL assay may give artificially low results in patients with liver disease. Blood Venous blood specimen / Unknown 04/10/2023 9:49 AM EST 04/10/2023 9:49 AM EST us Liya Kendall MD LAB BLOOD ORDERABLES Final Re sult [facility] [address] [place] [phone] from Last 3 Months or Most Recently Relevant to Health Maintenance [place] [address] [place] [address] C[facility] MEDICAID STAND ADULT Care Teams It Sales Executive Relationship Specialty Start Date End Date Liya Kendall MD [address] [facility] [place] [address] PCP - General Internal Medicine 04/08/23 Fatou Bridges DDS [address] [facility] [place] [address] Resident Dental Data Coordinator 04/28/24
--- OUTSIDE RECORDS SUMMARY | 2025-01-24 04:14 | XMS_ITS | Clinical Summary ---
Author Organization [address] [facility] Address [address] [place] [address] Phone Care Team Providers Care Assistant Director Of Nursing Name Role Phone Genevieve Fields MD Primary Care Provide r Social History Tobacco Use Types Packs/Day Years Used Date Smoking Tobacco: Never Assessed Sex and Gender Information Value Date Recorded Sex Assigned at Not on file Legal Sex Male 10:06 AM EST Gender Identity Not on file Sexual Orientation Not on file Plan of Treatment Upcoming Encounters Date Type Department Care Team ([facility] Contact Info) Description 03/28/2025 3:00 PM EST Consult Orthopedic Surgery [facility] [address] [phone] Tariq Garcia, DPM [address] [address] Health Maintenance Due Date Last Done Comments DTaP,Tdap,and Td Vaccines (1 - Tdap) 12/21/2011 Hepatitis B Vaccines (1 of 3 - 19+ 3-dose series) 12/21/2011 HPV Vaccines (1 - 3-dose SCD M series) 12/21/2019 Depression Screening 03/08/2024 COVID-19 Vaccine (1 - 2024-2 6 season) 2024 Influenza Vaccine (#1) 2024 HIV Screening 01/19/2025 Hepatitis C Screening 01/19/2025 Social Influencers of Health Screening 01/19/2025 RSV Immunization Adult Patie nts (1 - 1-dose 75+ series) 12/21/2067 HIB Vaccines Aged Out No longer eligi ble based on patient's age to complete this topic Hepatitis A Vaccines Aged Out No long er eligible based on patient's age to complete this topic IPV Vaccines Aged Out No longer eligi ble based on patient's age to complete this topic MMR Vaccines Aged Out No longer eligi ble based on patient's age to complete this topic Meningococcal ACWY Vaccine Aged Out N o longer eligible based on patient's age to complete this topic Meningococcal B Vaccine Aged Out No l onger eligible based on patient's age to complete this topic Pneumococcal Vaccine: Pediat rics (0 to 5 Years) and At-Risk Patients (6 to 49 Years) Aged Out No longer eligible b ased on patient's age to complete this topic RSV Immunization Patients Un jovan 20 months Aged Out No longer eligible b ased on patient's age to complete this topic Varicella Vaccines Aged Out No longer eligible based on patient's age to complete this topic Insurance MEDICAID - [place] Care Teams Assistant Director Of Nursing Relationship Specialty Start Date End Date Genevieve Fields MD [address] [place] [phone] PCP - General Internal Medicine 01/19/25
--- OUTSIDE RECORDS SUMMARY | 2025-01-24 04:14 | XMS_ITS | Encounter Summary ---
Author Organization [employer] Address [address] [facility] [address]t [place] [address] Care Team Providers Care Desk Maker Name Role Phone Liya Kendall MD Primary Care Provider [phone] Fatou Bridges DDYovany Unavailable Unavailabl e Encounter Details Date Type Department Care Team (Latest Contact Info) Description 01/20/2025 Travel Social History Tobacco Use Types Packs/Day [...] Description 02/13/2025 2:15 PM EST Office Visit [facility] ADULT DENTAL [address] [place] [address] Wisam Saucedo 02/14/2025 9:30 AM EST Office Visit [facility] [address] [place] [address] Liya Kendall MD [address] [place] [address] documented as of this encounter Visit Diagnoses Not on filedocumented in this encounter Additional Health Concerns Assessment Noted Time PHQ-9 Depression Total Score: 0 04/08/19 1:50 PM EST documented as of this encounter Care Teams Desk Maker Relationship Specialty Start Date End Date Liya Kendall MD [address] [place] [address] PCP - General Internal Medicine 04/08/23 Fatou Bridges DDS [address] [place] [address] Resident Dental Production Roustabout 04/28/24 documented as of this encounter
--- OUTSIDE RECORDS SUMMARY | 2025-01-24 04:14 | XMS_ITS | Encounter Summary ---
Author Organization [employer] Address [address] [facility] [address] [place] [address] Care Team Providers Care Particle Board Supervisor Name Role Phone Liya Kendall MD Primary Care Provider [phone] Fatou Bridges DDYovany Unavailable Unavailabl e Reason for Visit * Reason Onset Date Comments Results 01/16/2025 Encounter Details Date Type Department Care Team ([facility] Contact Info) Description 01/16/2025 Telephone [facility] [address] [place] [address] Liya Kendall MD [address] [place] [address] Results Social History Tobacco Use Types Packs/Day Years [...] encounter Miscellaneous Notes * Telephone Encounter - Palak Larson RN - 01/16/2025 1:50 PM EST TC from pt requesting call back regarding Results. Type of results: xray Date when done: 01/15 Facility: [facility] TC placed to pt to discuss x-ray results pt has a heel bone spur on heel pt states he still having a lot of pain, discussed that podiatry referral is in and gave pt information so he can call the office to schedule an appointment. Advised to take Motrin as directed, elevate and ice foot when resting. 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 Patient would like referral to PT as discussed during office visit will send message to provider * Telephone Encounter - Jerald Victoria - 01/16/2025 11:45 AM EST TC from pt requesting call back regarding Results. Type of results: xray Date when done: 01/15 Facility: [facility] documented in this encounter Plan of Treatment Upcoming Encounters Date Type Department Care Team (Late st Contact Info) Description 02/13/2025 2:15 PM EST Office Visit [facility] ADULT DENTAL [address] [place] [address] Wisam Saucedo 02/14/2025 9:30 AM EST Office Visit [facility] [address] [place] [address] Liya Kendall MD [address] [place] [address] documented as of this encounter Visit Diagnoses Not on filedocumented in this encounter Additional Health Concerns Assessment Noted Time PHQ-9 Depression Total Score: 0 04/08/19 24 1:50 PM EST documented as of this encounter Care Teams Particle Board Supervisor Relationship Specialty Start Date End Date Liya Kendall MD [address] [place] [address] PCP - General Internal Medicine 04/08/23 Fatou Bridges DDS [address] [place] [address] Resident Dental Water Resource Project Manager 04/28/24 documented as of this encounter
== END 2025-01-23 13:31 | disposition home or self-care (01) ==
PROVIDERS: PCP Pediatrics; Visit Provider Student in an Organized Health Care Education/Training Program
DX: M72.2 Plantar fascial fibromatosis (principal); M76.62 Achilles tendinitis, left leg; M77.32 Calcaneal spur, left foot; M77.52 Other enthesopathy of left foot and ankle; M79.672 Pain in left foot
CPT/HCPCS: 99204

== ENCOUNTER → 2025-01-23 12:52 | Outpatient (BNVA) | payer MEDICAID, SELFPAY | PROVIDERS: PCP Pediatrics; Visit Provider Student in an Organized Health Care Education/Training Program | DX: M72.2 Plantar fascial fibromatosis (principal); M76.62 Achilles tendinitis, left leg; M77.32 Calcaneal spur, left foot; M77.52 Other enthesopathy of left foot and ankle | CPT/HCPCS: 99202 ==

== ENCOUNTER 2025-02-14 10:31 | Outpatient (REF) | payer MEDICAID, SELFPAY ==
[2025-02-14 15:22] LABS: MANUAL DIFF FLAG NO
[2025-02-14 15:32] LABS: Hematocrit 50.3 % (42.0-52.0); Hemoglobin 17.6 g/dl (14.0-18.0); Imm Gran Abs Auto 0.04 X10*3/uL (0.00-0.03); Imm Gran Pct Auto 0.5 % (0.0-0.4); Lymphocytes Absolute Auto 2.5 X10*3/uL (1.2-4.9); Mean Corpuscular HGB Conc 35.0 g/dl (31.0-36.0); Mean Corpuscular Hemoglobin 31.9 pg (27.0-33.0); Mean Corpuscular Volume 91.3 fL (80.0-98.0); NRBC Abs Auto 0.000 X10*3/uL (0.0-0.012); NRBC Pct Auto 0.0 /100WBC (0.0-0.2); Platelet Count 265 X10*3/uL (160-400); Red Blood Count 5.51 X10*6/uL (4.60-5.80); White Blood Count 7.6 X10*3/uL (4.8-10.8)
[2025-02-14 16:37] LABS: Alanine Aminotransferase 41 U/L (0-40); Albumin Level 4.8 g/dL (3.5-5.0); Alkaline Phosphatase 67 U/L (39-117); Anion Gap 13 (12-20); Aspartate Amino Transferase 30 U/L (5-37); Blood Urea Nitrogen 19 mg/dL (9-16); Calcium 9.5 mg/dL (8.4-10.2); Carbon Dioxide 27 mmol/L (22-29); Chloride 108 mmol/L (96-108); Cholesterol 227 mg/dL (<200); Estimated Glomerular Filt Rate > 60; HDL Cholesterol 39 mg/dL (>40); Potassium 4.6 mmol/L (3.3-5.1); Sodium 143 mmol/L (135-145); Total Protein 7.1 g/dL (6.5-8.0); Triglycerides 163 mg/dL (<150)
[2025-02-14 16:39] LABS: Microalbum/Creatinine Ratio Ur 2.3 ug/mg cr (<30)
== END 2025-02-14 10:32 ==
LOC: HO.CHCLDS 10:31
PROVIDERS: Visit Provider Pediatrics
DX: E66.811 Obesity, class 1 (principal); R03.0 Elevated blood-pressure reading, without diagnosis of hypertension; Z72.0 Tobacco use
CPT/HCPCS: 36415; 80048; 80061; 80076; 82043; 82570; 83036; 84443; 85025